=== PATIENT | male | born 1995 | race Caucasian/White ===

== ENCOUNTER 2019-03-06 05:35 | Emergency (ER) | payer OTHER ==
[2019-03-06] MEDS ORDERED: Ibuprofen TAB* 600 MG PO ONE (06:07)
--- NOTE | 2019-03-06 06:08 | ED ---
Throat Pain/Nasal Congestion - HPI Summary HPI Summary: Patient is a 23-year-old male who presents emergency department for throat pain and swelling 2 days. Patient states he is visiting the area on a business trip and slipped in a hotel last night with air-conditioner on. Patient states he noticed a sore throat yesterday and when he woke up this morning he felt his throat was swelling closed. He states since he woke up his throat is feeling better and he is feeling back to baseline. Patient denies any history of allergic reactions and denies associated symptoms of wheezing, shortness of breath, rash, facial or mouth swelling. Patient able to tolerate liquids and solids since incident. Patient has a history of recurrent strep and a tonsillectomy. Otherwise no past medical history. Symptoms are mild in severity. Swallowing makes symptoms worse. Nothing makes symptoms better. - History of Current Complaint Chief Complaint: EDThroatPain Time Seen by Provider: 03/06/19 05:40 Hx Obtained From: Patient - Allergies/Home Medications Allergies/Adverse Reactions: Allergies Allergy/AdvReac Type Severity Reaction Status Date / Time No Known Allergies Allergy Verified 03/06/19 05:50 Home Medications: Home Medications NK [No Home Medications Reported] 03/06/19 [History Confirmed 03/06/19] PMH/Surg Hx/FS Hx/Imm Hx Previously Healthy: Yes Infectious Disease History: No Infectious Disease History: Denies: Traveled Outside the [place] in Last 30 Days - Family History Known Family History: Positive: Non-Contributory - Social History Occupation: Employed Full-time Lives: With Family Alcohol Use: Weekly Substance Use Type: Reports: None Smoking Status (MU): Never Smoked Tobacco Review of Systems Constitutional: Negative Negative: Fever, Chills Eyes: Negative Positive: Sore Throat, Other - nasal congestion Respiratory: Negative Negative: Shortness Of Breath, Cough Gastrointestinal: Negative Genitourinary: Negative Skin: Negative Negative: Rash Neurological: Negative All Other Systems Reviewed And Are Negative: Yes Physical Exam Triage Information Reviewed: Yes Vital Signs On Initial Exam: Initial Vitals Temp Pulse Resp BP Pulse Ox 97.6 F 65 16 132/84 96 03/06/19 05:37 03/06/19 05:37 03/06/19 05:37 03/06/19 05:37 03/06/19 05:37 Vital Signs Reviewed: Yes Appearance: Positive: Well-Appearing - Pt. sitting up in bed looking at his cellphone. Skin: Positive: Warm, Dry Head/Face: Positive: Normal Head/Face Inspection Eyes: Positive: Normal, EOMI, DEBBY ENT: Positive: Other - Tonsillectomy. Oral pharynx is injected without edema. Uvula midline without edema. No trismus or muffled voice. No swelling to lips, tonuge or face. Neck: Positive: Supple, Tenderness @, Enlarged Nodes @ - bilateral cervical. Negative: Nuchal Rigidity Respiratory/Lung Sounds: Positive: Clear to Auscultation, Breath Sounds Present Cardiovascular: Positive: Normal, RRR Musculoskeletal: Positive: Normal, Strength/ROM Intact Neurological: Positive: Normal, CN Intact II-III Diagnostics - Vital Signs Vital Signs Temp Pulse Resp BP Pulse Ox 03/06/19 05:37 97.6 F 65 16 132/84 96 - Laboratory Lab Statement: Any lab studies that have been ordered have been reviewed, and results considered in the medical decision making process. EENT Course/Dx - Course Course Of Treatment: Patient with sore throat and lymphadenopathy. No evidence of allergic reaction. Exam is unremarkable other than mild injection to posterior pharynx. Patient requesting strep test which was negative. Patient given a dose of ibuprofen. Suspect viral etiology mixed with irritation from air-conditioning. Patient requesting discharge home. Advised to increase fluids and rest. Tylenol or Motrin for discomfort as directed. [facility] and return to the ER symptoms change or worsen. - Differential Diagnoses Differential Diagnoses: Dental Abscess, Aubrey's Angina, Pharyngitis, Tonsilitis - Diagnoses Provider Diagnoses: Pharyngitis Discharge - Sign-Out/Discharge Documenting (check all that apply): Patient Departure Patient Received Moderate/Deep Sedation with Procedure: No - Discharge Plan Condition: Good Disposition: HOME Patient Education Materials: Pharyngitis (ED) Referrals: [facility] [Outside] Additional Instructions: Follow up with the [facility] if needed Increase fluids and rest Tylenol or Motrin for pain as directed Avoid sleeping with air conditioner Return to ER if symptoms change or worsen - Billing Disposition and Condition Condition: GOOD Disposition: Home
[2019-03-06 07:10] LABS: Rapid Strep Molecular Negative (Negative)
[2019-03-06 07:40] VITALS: BP 126/84
== END 2019-03-06 07:39 | disposition home or self-care (01) ==
LOC: ED 05:35
DX: J02.9 Acute pharyngitis, unspecified (principal)
CPT/HCPCS: 87651; 99282; A9270-GY